=== PATIENT | female | born 1960 | race Hispanic/Latino ===

== ENCOUNTER 2025-01-12 21:07 | Emergency (ER) | payer SELFPAY ==
[2025-01-12 22:02] LABS: Cocaine Metabolite Screen Negative (Negative); THC/Cannabinoid Screen Negative (Negative); Tricyclic Screen Negative (Negative)
[2025-01-12 22:06] LABS: ALT (SGPT) 31 U/L (Less than 34); AST (SGOT) 100 U/L (11-34); Albumin 5.8 g/dL (3.1-4.5); Alkaline Phosphatase 72 U/L (40-110); Anion Gap 18 mmol/L (10-20); BUN (Urea Nitrogen) 20 mg/dL (9.8-20.1); Bilirubin, Total 0.5 mg/dL (0.3-1.2); Calc. Creatinine Clearance 0 mL/min (70-130); Calcium 10.2 mg/dL (7.8-10.44); Carbon Dioxide 22 mmol/L (23-31); Chloride 96 mmol/L (98-107); Globulin 3.2 g/dL (2.4-3.5); Glucose 102 mg/dL (80-115); Hematocrit 31.6 % (36.0-47.0); Hemoglobin 11.7 g/dL (12.0-16.0); MDiff Complete? YES; Magnesium 2.1 mg/dL (1.6-2.6); Mean Corpuscular Hemoglobin 32.7 pg (27.0-31.0); Mean Corpuscular Volume 88.6 fl (78.0-98.0); Platelet Adequacy Comment Appears Adequate; Platelet Count 249 10x3/uL (130-400); Potassium 3.6 mmol/L (3.5-5.1); Red Blood Cell (RBC) Count 3.56 mill/uL (4.20-5.40); Sodium 132 mmol/L (136-145); White Blood Cell (WBC) Count 5.5 10x3/uL (4.8-10.8)
[2025-01-12 22:10] LABS: Troponin I Less than 0.010 ng/mL (< 0.028)
== END 2025-01-12 23:08 | disposition home or self-care (01) ==
LOC: BURERS 21:07
DX: I10 Essential (primary) hypertension (principal); E87.1 Hypo-osmolality and hyponatremia; D64.9 Anemia, unspecified; R00.2 Palpitations
CPT/HCPCS: 71045; 80053; 80306; 83735; 83880; 84484; 85025; 85379; 93005